=== PATIENT | female | born 1990 | race Caucasian/White ===

== ENCOUNTER 2017-06-16 17:34 | Inpatient (IN) | payer MEDICAID ==
[2017-06-16] MEDS ORDERED: Misoprostol 200 MCG Tab PO PRN (17:57)
[2017-06-16] MEDS ORDERED: Butorphanol 1 MG/ML SDV IVPUSH PRN (17:57)
[2017-06-16] MEDS ORDERED: Tranexamic Acid 1,000 MG in Sodium Chloride 0.9% 100 ML IV PRN (17:57)
[2017-06-16] MEDS ORDERED: Lidocaine 1% 50 ML MDV INJECT PRN (17:57)
[2017-06-16] MEDS ORDERED: Water For Irrigation,Sterile 1,000 ML Container IRR PRN (17:57)
[2017-06-16] MEDS ORDERED: Methylergonovine 0.2 MG/1 ML Amp IM PRN (17:57)
[2017-06-16] MEDS ORDERED: Carboprost Tromethamine 250 MCG/1 ML Amp IM PRN (17:57)
[2017-06-16] MEDS ORDERED: Nalbuphine 10 MG/1 ML Vial IVPUSH PRN (17:57)
[2017-06-16] MEDS ORDERED: Sodium Chloride 0.9% 10 ML Syringe FLUSH PRN (17:57)
[2017-06-16] MEDS ORDERED: Sodium Chloride 0.9% 2.5 ML Syringe FLUSH PRN (17:57)
[2017-06-16] MEDS ORDERED: Misoprostol 25 MCG (1/4 of 100 MCG) Tab VAG SCH (18:00)
[2017-06-16] MEDS ORDERED: Terbutaline 1 MG/ML SDV SUBCUT PRN (18:00)
[2017-06-16] MEDS ORDERED: Misoprostol 25 MCG (1/4 of 100 MCG) Tab VAG PRN (18:00)
[2017-06-16] MEDS ORDERED: Lactated Ringers 1,000 ML IV SCH (18:00)
[2017-06-16] MEDS ORDERED: Misoprostol 25 MCG (1/4 of 100 MCG) Tab PO ONE (18:03)
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
[2017-06-16] MEDS ORDERED: Misoprostol 25 MCG (1/4 of 100 MCG) Tab PO PRN (23:00)
[2017-06-17] MEDS ORDERED: hydrOXYzine Pamoate 25 MG Cap PO PRN (00:38)
[2017-06-17] MEDS ORDERED: Nalbuphine 10 MG/ML 10 ML MDV ONE (01:06)
[2017-06-17] MEDS ORDERED: Oxytocin/0.9 % Sodium Chloride 30 UNIT/500 ML BAG ONE (02:54)
[2017-06-17] MEDS ORDERED: Witch Hazel Medicated Pads 40/Jar TOP PRN (03:38)
[2017-06-17] MEDS ORDERED: Lanolin 100% Cream 7 GM Tube TOP PRN (03:38)
[2017-06-17] MEDS ORDERED: Bisacodyl 10 MG Supp RECTAL PRN (03:38)
[2017-06-17] MEDS ORDERED: Ibuprofen 400 MG Tab PO PRN (03:38)
[2017-06-17] MEDS ORDERED: Acetaminophen 500 MG Tab PO PRN ×2 (03:38)
[2017-06-17] MEDS ORDERED: oxyCODONE 5 MG Tab PO PRN (03:38)
[2017-06-17] MEDS ORDERED: Benzocaine/Menthol 20%-0.5% Spray 78 GM Cannister TOP PRN (03:38)
[2017-06-17] MEDS ORDERED: Docusate Sodium 100 MG Cap PO PRN (03:38)
--- NOTE | 2017-06-17 04:09 | OR ---
SURGEON: Ja Reed MD DATE OF PROCEDURE: 06/17/2017 Ms. Ngo is 26 years old. She is para 2-0-0-2. She is followed in our clinic primarily by me, and the patient's GBS status is negative. She has no problem prenatally. She is admitted for elective induction with Cytotec. The patient's heart rate was category 1. She responded very well to the Cytotec, and she is delivered rather rapidly. After that, she had did not have time to have epidural, and she was accomplishing vaginal delivery of a female fetus. score reported to be 8 and 9. Weight is not available at this time. The placenta delivered spontaneous complete and intact without any problem, and there are mild first-degree lacerations. After infiltrating the area with 1% Xylocaine, it was repaired appropriately in layer with 3-0 Vicryl. ESTIMATED BLOOD LOSS: 250 to 300 mL in this . COMPLICATION: There was no complication. GISELLE / RENNY /[id number]
[2017-06-17] MEDS ORDERED: Oxytocin/0.9 % Sodium Chloride 30 UNIT/500 ML BAG IV SCH ×2 (05:00)
[2017-06-17] MEDS: Ibuprofen 800 MG Tab PO PRN ×2 (05:33→15:43)
--- NOTE | 2017-06-18 09:37 | PCM.PNPP ---
- General Info Date of Service: 06/18/17 Functional Status: Reports: Pain Controlled - Review of Systems General: Reports: No Symptoms HEENT: Reports: No Symptoms Pulmonary: Reports: No Symptoms Cardiovascular: Reports: No Symptoms Gastrointestinal: Reports: No Symptoms Genitourinary: Reports: No Symptoms Musculoskeletal: Reports: No Symptoms Skin: Reports: No Symptoms Neurological: Reports: No Symptoms Psychiatric: Reports: No Symptoms - General Info Date of Service: 06/18/17 - Patient Data Vital Signs - Most Recent: Last Vital Signs Temp 36.4 C 06/18/17 07:54 Pulse 76 06/18/17 07:54 Resp 15 06/18/17 07:54 BP 131/73 06/18/17 07:54 Pulse Ox 97 06/18/17 07:54 Weight - Most Recent: 92.079 kg Lab Results - Last 24 Hours: Laboratory Results - last 24 hr 06/18/17 Range/Units 05:53 Hgb 10.1 L (12.0-16.0) g/dL Hct 31.4 L (36.0-46.0) % Med Orders - Current: Current Medications Acetaminophen (Tylenol Extra Strength) 500 mg PO Q4H PRN PRN Reason: Pain Acetaminophen (Tylenol Extra Strength) 1,000 mg PO Q4H PRN PRN Reason: Pain Benzocaine/Menthol (Dermoplast Pain Relief 20%-0.5% [place]) 78 gm TOP ASDIRECTED PRN PRN Reason: Perineal Comfort Measure Bisacodyl (Dulcolax) 10 mg RECTAL .ONCE PRN PRN Reason: Constipation Butorphanol Tartrate (Stadol) 1 mg IVPUSH Q1H PRN PRN Reason: Pain Last Admin: 06/17/17 01:24 Dose: 1 mg Carboprost Tromethamine (Hemabate Ds) 250 mcg IM ASDIRECTED PRN PRN Reason: Post Hemorrhage Docusate Sodium (Colace) 100 mg PO BID PRN PRN Reason: Constipation Emollient Ointment (Lansinoh Hpa) 0 gm TOP ASDIRECTED PRN PRN Reason: Sore Nipples Last Admin: 06/17/17 05:32 Dose: 1 applicful Hydroxyzine Pamoate (Vistaril) 50 mg PO BEDTIME PRN PRN Reason: Sleep Last Admin: 06/17/17 00:56 Dose: 50 mg Lactated Ringer's (Ringers, Lactated) 1,000 mls @ 150 mls/hr IV ASDIRECTED MEE Oxytocin/Sodium Chloride (Oxytocin 30 Unit/500 Ml-Ns) 30 unit in 500 mls @ 500 mls/hr IV TITRATE MEE Last Admin: 06/17/17 03:19 Dose: 500 mls/hr Tranexamic Acid 1,000 mg/ (Sodium Chloride) 110 mls @ 660 mls/hr IV ONETIME PRN PRN Reason: Bleeding Oxytocin/Sodium Chloride (Oxytocin 30 Unit/500 Ml-Ns) 30 unit in 500 mls @ 2 mls/hr IV TITRATE [facility]; Protocol Ibuprofen (Motrin) 400 mg PO Q4H PRN PRN Reason: Pain Ibuprofen (Motrin) 800 mg PO Q6H PRN PRN Reason: Pain Last Admin: 06/17/17 15:43 Dose: 800 mg Lidocaine HCl (Xylocaine 1%) 50 ml INJECT .ONCE PRN PRN Reason: Laceration repair Methylergonovine Maleate (Methergine) 0.2 mg IM ASDIRECTED PRN PRN Reason: Post Hemorrhage Misoprostol (Cytotec) 200 mcg PO .ONCE PRN PRN Reason: Post Hemorrhage Misoprostol (Cytotec) 25 mcg VAG .ONCE MEE Last Admin: 06/16/17 18:53 Dose: 25 mcg Misoprostol (Cytotec) 25 mcg VAG Q4H PRN PRN Reason: Cervical Ripening Last Admin: 06/17/17 00:09 Dose: 25 mcg Misoprostol (Cytotec) 25 mcg PO Q4H PRN PRN Reason: Other Last Admin: 06/17/17 00:09 Dose: 25 mcg Nalbuphine HCl (Nubain) 10 mg IVPUSH Q1H PRN PRN Reason: Pain (severe 7-10) Oxycodone HCl (Oxycodone) 5 mg PO Q2H PRN PRN Reason: Pain Sodium Chloride (Saline Flush) 10 ml FLUSH ASDIRECTED PRN PRN Reason: Keep Vein Open Sodium Chloride (Saline Flush) 2.5 ml FLUSH ASDIRECTED PRN PRN Reason: Keep Vein Open Sterile Water (Sterile Water For Irrigation) 1,000 ml IRR ASDIRECTED PRN PRN Reason: delivery Terbutaline Sulfate (Brethine) 0.25 mg SUBCUT ASDIRECTED PRN PRN Reason: Tacysystole Rebel Balderas (Tucks) 1 pad TOP ASDIRECTED PRN PRN Reason: comfort care Discontinued Medications Oxytocin/Sodium Chloride (Oxytocin 30 Unit/500 Ml-Ns) Confirm Administered Dose 30 unit in 500 mls @ as directed .ROUTE .STK-MED ONE Stop: 06/17/17 02:55 Last Admin: 06/17/17 17:11 Dose: Not Given Fentanyl/Bupivacaine HCl (Vqaeidgp-Evbni-Ge 2 Mcg/Ml-0.125%) Confirm Administered Dose 100 mls @ as directed EP .STK-MED ONE Stop: 06/17/17 03:13 Last Admin: 06/17/17 17:11 Dose: Not Given Misoprostol (Cytotec) 25 mcg PO ONETIME ONE Stop: 06/16/17 18:04 Last Admin: 06/16/17 18:50 Dose: 25 mcg Nalbuphine HCl (Nubain) Confirm Administered Dose 100 mg .ROUTE .STK-MED ONE Stop: 06/17/17 01:07 Last Admin: 06/17/17 17:10 Dose: Not Given - Interaction Infant Disposition, : in Room with Family Infant Interaction: Holding Infant Infant Feeding: Attempted ; Nursed Fair/Poor Support Person: - Recovery Exam Fundal Tone: Firm Fundal Level: 1 Fingerbreadths Below Umbilicus Fundal Placement: Midline Lochia Amount: Scant Lochia Color: Rubra/Red Perineum Description: Intact, Minimal Bruising/Swelling Episiotomy/Laceration: None Bladder Status: Voiding Urinary Elimination: Voided - Exam General: Alert, Oriented HEENT: Pupils Equal Neck: Supple Lungs: Clear to Auscultation, Normal Respiratory Effort Cardiovascular: Regular Rate, Regular Rhythm GI/Abdominal Exam: Normal Bowel Sounds, Soft, Non-Tender, No Organomegaly, No Distention, No Abnormal Bruit, No Mass, Pelvis Stable Extremities: Normal Inspection, Normal Range of Motion, Non-Tender, No Pedal Edema, Normal Capillary Refill Skin: Warm, Dry, Intact Wound/Incisions: Healing Well Neurological: No New Focal Deficit Psy/Mental Status: Alert, Normal Affect, Normal Mood - Problem List Review Problem List Initiated/Reviewed/Updated: Yes - Assessment Assessment:: doing well send home today. - Plan Plan:: IOL A: 26yo EDC 06/14/2017 40 2/7wks IOL for post dates, A+, RI, GBS neg. P: Admit to L&D, start cytotec and then pitocin, GBS neg, anticipate . Dr Reed updated.
== END 2017-06-18 11:25 | disposition home or self-care (01) | DRG 775 ==
LOC: MW.OBCHECK 17:34 → MW.OB 17:35 → MW.OBCHECK 17:58 → MW.OB 17:58 → OBSVTOIN 06-17 03:18
PROVIDERS: ADMIT Obstetrics & Gynecology; ATTEND Obstetrics & Gynecology
PROC: 10E0XZZ Delivery of Products of Conception, External Approach (ICD-10-PCS; principal; 2017-06-17)
PROC: 3E0P7VZ Introduction of Hormone into Female Reproductive, Via Natural or Artificial Opening (ICD-10-PCS; 2017-06-17)
PROC: 0HQ9XZZ Repair Perineum Skin, External Approach (ICD-10-PCS; 2017-06-17)
DX: O48.0 Post-term pregnancy (principal); Z3A.40 40 weeks gestation of pregnancy; Z37.0 Single live birth
CPT/HCPCS: 36415; 59025; 59409; 85014; 85018; 85027; 86850; 86900; 86901; A9270-GY; J0595; J2590